=== PATIENT | female | born 1960 | race Caucasian/White ===

== ENCOUNTER 2017-10-05 05:27 | Day surgery (SDC) | payer OTHER ==
[~2017-10-05] VITALS: Ht 162.6 cm; Wt 115.2 kg
--- NOTE | ~2017-10-05 | O ---
[facility] [place] [address] OPERATIVE REPORT Name: DALE SANDERS Room #: DEP [facility]..#: [id number] Admission: 10/05/17 Attend Phys: Watson Rebolledo MD Discharge: 10/05/17 Date of : 62 Report #: [id number] THIS REPORT FOR: //name// CC: Dr. Farheen Rebolledo DATE OF SERVICE: 10/05/[address] Watson Rebolledo, Dr. Farheen Morrison, Dr. Michael Goyal. PREOPERATIVE DIAGNOSIS: Right breast carcinoma requiring central venous access for blood draw and chemotherapy, which is now complete. POSTOPERATIVE DIAGNOSIS: Right breast carcinoma requiring central venous access for blood draw and chemotherapy, which is now complete. PROCEDURE: Removal of a left subclavian Port-A-Cath. SURGEON: Watson Rebolledo M.D. ANESTHESIA: Local IV sedation. DESCRIPTION OF PROCEDURE: The patient was brought to the operating room and placed on operative table in the supine position. Sequential compression devices were in place for DVT prophylaxis. There was no indication for preoperative antibiotics. The left upper chest was then prepped and draped in a sterile fashion. Skin and subcutaneous tissue were then infiltrated with 0.5% Marcaine and 1% Xylocaine in a 1:1 mixture. Skin incision was performed through the previous incision scar using #15 scalpel blade. Hemostasis obtained using electrocautery. Dissection was carried down through subcutaneous tissue to the catheter, which was identified, dissected free and removed from the vein. The port was then dissected free from the subcutaneous tissue including the capsule using the electrocautery. This was removed and discarded. Meticulous hemostasis was checked and obtained using electrocautery and found to be intact. Deep and superficial subcutaneous tissue was then reapproximated using simple interrupted 2-0 chromic sutures and the skin then closed with a running 4-0 subcuticular Vicryl stitch. The wound was then dressed with Mastisol, 1/2-inch Steri-Strips cut in half, Telfa, 4 x 4 gauze, sponge and tape. The patient was then awakened from the IV sedation, taken to the recovery room in good condition. Estimated blood loss was approximately 5 mL and the patient [address] [address] OPERATIVE REPORT Name: DALE SANDERS Room #: DEP [facility]#: [id number] Admission: 10/05/17 Attend Phys: Watson Rebolledo MD Discharge: 10/05/17 Date of : 62 Report #: [id number] tolerated the procedure well. All sponge, lap and instrument counts correct x 2. <ELECTRONICALLY SIGNED> By: Watson Rebolledo MD 10/06/17 1548 [id number] Watson Rebolledo MD /nt
[~2017-10-05 05:27] MED LIST: ATIVAN0.5 MG PO; CLARITIN10 MG PO; COMPAZINE10 MG PO; MUCINEX TA600 MG/TA2 PO; NORCO 5-325 TA1 EACH PO; ONDANSETRON HCL4 M2 PO; VENTOLIN HFA 1818 GM INH; ZANTAC 150MG T150 MG PO
[2017-10-05 13:00] VITALS: BP 113/75
[2017-10-05] MEDS ORDERED: HYDROCODONE-AP1 EAC6 PO (14:28)
[2017-10-05 14:40] VITALS: BP 113/75
== END 2017-10-05 15:02 | disposition home or self-care (01) ==
LOC: OR 05:27 → TBA 05:28 → OR 11:45
DX: Z45.2 Encounter for adjustment and management of vascular access device (principal); C50.911 Malignant neoplasm of unspecified site of right female breast; Z87.891 Personal history of nicotine dependence; Z90.710 Acquired absence of both cervix and uterus; Z98.890 Other specified postprocedural states; Z87.01 Personal history of pneumonia (recurrent); Z88.8 Allergy status to other drugs, medicaments and biological substances; Z79.891 Long term (current) use of opiate analgesic
CPT/HCPCS: 50010; 50101; 50386; 50403; 56524; 56528; 62110; 62850; 70005